=== PATIENT | male | born 1935 | race Caucasian/White ===

== ENCOUNTER 2018-12-04 11:53 | Day surgery (SDC) | payer MEDICARE ==
[~2018-12-04] VITALS: Ht 167.6 cm; Wt 74.8 kg
[2018-12-04 13:07] VITALS: BP 122/67
== END 2018-12-04 17:45 | disposition home or self-care (01) ==
LOC: OUT 11:53
PROVIDERS: ATTEND Urology
DX: N45.2 Orchitis (principal); N50.89 Other specified disorders of the male genital organs; J44.9 Chronic obstructive pulmonary disease, unspecified; Z79.899 Other long term (current) drug therapy
CPT/HCPCS: 54530; 88305; 93005; J0330; J0690; J1100; J1885; J2405; J2704; J2710; J3010; J7120